=== PATIENT | female | born 1960 | race Caucasian/White ===

== ENCOUNTER 2024-10-03 07:39 | Emergency (ER) | payer OTHER ==
[~2024-10-03] VITALS: Ht 152.4 cm; Wt 68.0 kg
[2024-10-03 07:41] VITALS: O2SAT 100
[2024-10-03] MEDS: TETANUS, DIPHTHERIA, PERTUSSIS VAC/PF 0.5ML (>10YR OLD) IM ONE (08:00)
[2024-10-03] MEDS: METRONIDAZOLE 500MG TABLET PO STA (08:43)
[2024-10-03] MEDS: DOXYCYCLINE HYCLATE 100MG CAPSULE PO STA (08:43)
[2024-10-03] MEDS: ACETAMINOPHEN 325MG TABLET PO ONE (09:00)
[2024-10-03] MEDS ORDERED: METRONIDAZOLE 500MG TABLET PO SCH (09:15)
[2024-10-03] MEDS: TETANUS AND DIPHTHERIA TOX/PF 0.5ML SYR (ADULT) IM ONE (10:33)
[2024-10-03] MEDS ORDERED: METR-167 MT (13:55)
[2024-10-03] MEDS ORDERED: DOXY100T2 MT (13:55)
[2024-10-03 14:04] VITALS: BP 147/72; PULSE 88; RESP 16; TEMP 36.9; O2SAT 100
== END 2024-10-03 16:36 | disposition home or self-care (01) ==
LOC: ER 07:39
DX: S00.93XA Contusion of unspecified part of head, initial encounter (principal); S50.12XA Contusion of left forearm, initial encounter; S80.12XA Contusion of left lower leg, initial encounter; S80.211A Abrasion, right knee, initial encounter; S80.811A Abrasion, right lower leg, initial encounter; R51.9 Headache, unspecified; E11.9 Type 2 diabetes mellitus without complications; Z79.899 Other long term (current) drug therapy; Z88.0 Allergy status to penicillin; W54.0XXA Bitten by dog, initial encounter; Y93.89 Activity, other specified; Y92.89 Other specified places as the place of occurrence of the external cause; Y99.8 Other external cause status
CPT/HCPCS: 73080; 73090; 73560; 73590; 70450; 90715; 90471; 99285; Z7610 ×2; 90714